=== PATIENT | male | born 1950 | race Caucasian/White ===

== ENCOUNTER → 2016-10-22 | Outpatient (CLI) | payer OTHER ==
[~2016-10-22] MED LIST: LOTREL 5-20 MG1 CAP PO
--- NOTE | ~2016-10-22 | CT4 ---
[facility] A Service of [facility] RADIOLOGY TEXT RESULTS PATIENT: JOSH MEHTA LOCATION: [facility] : 54 UNIT #: [id number] AGE: [address]: Josh Granados MD SEX: M ORDER DR: [id number] [facility] [address] [place], [place] [address] [id number] O MR#: [id number] Acc #: [id number] NAME: JOSH MEHTA. : 1950 SEX: M STUDY DATE/TIME: 10/22/2016 8:29 UNIT: [facility] ROOM: STUDY DESCRIPTION: CT Abd and Pelv Wo Cont Attending Physician: Josh Granados M.D. Referring Physician: Josh Granados M.D. Ordering Physician: Josh Granados M.D. Primary Care Physician: Josh Granados M.D. MEDICAL IMAGING REPORT This report is preliminary unless electronic signature is present EXAM CT abdomen and pelvis without contrast INDICATION Bilateral flank pain for the past month. PROCEDURE Unenhanced CT of the abdomen and pelvis TECHNIQUE This CT exam was performed with one or more of the following radiation dose reduction techniques: automatic exposure control, adjustment of mA and/or kV according to patient size, and iterative reconstruction. COMPARISON None FINDINGS ABDOMEN WITHOUT CONTRAST: Included lung bases are clear. The liver, spleen, adrenal glands and pancreas unremarkable. There are a few small stones in the gallbladder. No evidence for inflammation. Mild bilateral perinephric stranding. No radiodense ureteral calculus or hydronephrosis. Bowel loops are nondilated. Tiny fat-containing umbilical hernia measures 1.9 cm. PELVIS WITHOUT CONTRAST: No radiodense bladder calculus. No pelvic mass or fluid. No aggressive appearing bone lesion. IMPRESSION 1. No acute findings in the abdomen or pelvis. No radiodense urinary system calculus or hydronephrosis. 2. Mild bilateral nonspecific perinephric stranding. [facility] A Service of [facility] RADIOLOGY TEXT RESULTS PATIENT: [facility]A [id number] 54 UNIT #: [id number] AGE: [address]: Josh Granados MD SEX: M ORDER DR: 3. Uncomplicated cholelithiasis. Dictated by... William Collado M.D. THIS IS AN ELECTRONICALLY VERIFIED REPORT William Collado M.D. at 10/24/2016 7:14 AM DIAMOND/annie TD: 10/22/2016 14:48 JOB #: [id number] MEDICAL IMAGING REPORT Page 1 of 1 COPY
== END | disposition home or self-care (01) ==
LOC: CCAT 08:03
DX: R10.9 Unspecified abdominal pain (principal); K80.20 Calculus of gallbladder without cholecystitis without obstruction
CPT/HCPCS: 74176